=== PATIENT | female | born 1955 | race Caucasian/White ===

== ENCOUNTER 2016-06-28 16:31 | Emergency (ER) | payer MEDICAID ==
[~2016-06-28] VITALS: Ht 170.2 cm; Wt 99.8 kg
[~2016-06-28 16:31] MED LIST: ACET-929 PO; ANORO INHALER INH; ASPI81CH43 PO; CARV3.1240 PO; FURO20TA3 PO; GABA300C8 PO; LEV500T PO; LEVO150T10 PO; LISI10TA6 PO; METF-312 PO; SPIR25TA89 PO
[2016-06-28 17:13] LABS: Basophils # (auto) 0 uL; Basophils % (auto) 0.4 % (0.0-2.0); Eosinophils # (auto) 0.2 uL; Eosinophils % (auto) 2.5 % (0.0-7.0); Hematocrit 34.6 % (36.0-46.0); Hemoglobin 11.3 g/dL (12.2-16.2); Lymphocytes % (auto) 24.8 % (10.0-50.0); Mean Corpuscular Hgb Conc. 32.5 g/dL (32.0-36.0); Mean Corpuscular Volume 89.1 fL (80.0-100.0); Monocytes # (auto) 0.6 uL; Monocytes % (auto) 7.3 % (0.0-12.0); Neutrophils # (auto) 5.1 uL; Platelet Count (auto) 237 10^3/uL (140-450); Red Cell Distribution Width 17.8 % (11.6-16.0); White Blood Cell 7.9 10^3/uL (4.4-10.8)
[2016-06-28 17:40] LABS: Albumin 3.4 g/dL (3.4-5.0); BUN/Creatinine Ratio 19.8; Calcium 7.7 mg/dL (8.5-10.1); Potassium 4.6 mmol/L (3.5-5.1)
[2016-06-28 17:43] LABS: Bilirubin, Total 0.4 mg/dL (0.2-1.0); Total Protein 7.5 g/dL (6.4-8.2)
[2016-06-28] MEDS ORDERED: ALBUTEROL SULF 2.5 MG/0.5ML(0.5%) NEB SOLN NEB ONE (18:30)
[2016-06-28] MEDS ORDERED: IPRATROPIUM BROM 0.5 MG/2.5ML INH SOL NEB ONE (18:30)
[2016-06-28] MEDS ORDERED: methylPREDNISolone SOD SUCC 125 MG/2 ML VL IV ONE (18:30)
[2016-06-28 18:46] LABS: Magnesium 2.5 mg/dL (1.6-2.6)
[2016-06-28 19:39] LABS: B-Type Natriuretic Peptide 153.52 pg/mL (0-100)
[2016-06-28 19:40] LABS: Temperature: 23.1 C (20.0-25.0)
[2016-06-28] MEDS ORDERED: ENOXAPARIN SOD 100 MG/1 ML SYRINGE SC ONE (19:45)
[2016-06-28] MEDS ORDERED: IOHEXOL 350 MG/ML 100ML IJ ONE (20:35)
[2016-06-28 22:16] VITALS: BP 113/55
== END 2016-06-28 22:59 | disposition home or self-care (01) ==
LOC: ER 16:31 → EDBD 16:31 → ER 22:58
DX: J20.9 Acute bronchitis, unspecified (principal); I10 Essential (primary) hypertension; I13.0 Hypertensive heart and chronic kidney disease with heart failure and stage 1 through stage 4 chronic kidney disease, or unspecified chronic kidney disease; N18.9 Chronic kidney disease, unspecified; I50.40 Unspecified combined systolic (congestive) and diastolic (congestive) heart failure; J44.1 Chronic obstructive pulmonary disease with (acute) exacerbation; M19.90 Unspecified osteoarthritis, unspecified site; E11.9 Type 2 diabetes mellitus without complications; K21.9 Gastro-esophageal reflux disease without esophagitis; E78.5 Hyperlipidemia, unspecified; E07.89 Other specified disorders of thyroid; Z95.1 Presence of aortocoronary bypass graft; Z86.73 Personal history of transient ischemic attack (TIA), and cerebral infarction without residual deficits; Z90.49 Acquired absence of other specified parts of digestive tract; Z90.89 Acquired absence of other organs; Z98.51 Tubal ligation status; Z88.1 Allergy status to other antibiotic agents
CPT/HCPCS: 36415; 71010; 71275; 80053; 83735; 83880; 84484; 85025; 85379; 93005; 93970; 94640; 96372; 96374; 99285; J1650; J2930; Q9967

== ENCOUNTER 2016-09-13 20:27 | Emergency (ER) | payer MEDICAID ==
[~2016-09-13] VITALS: Ht 165.1 cm; Wt 104.3 kg
[2016-09-13 21:00] VITALS: BP 123/71
[2016-09-13 21:40] LABS: Basophils # (auto) 0 uL; Basophils % (auto) 0.4 % (0.0-2.0); Eosinophils # (auto) 0.2 uL; Hematocrit 41.3 % (36.0-46.0); Hemoglobin 13.8 g/dL (12.2-16.2); Lymphocytes # (auto) 1.9 uL; Lymphocytes % (auto) 18.5 % (10.0-50.0); Mean Corpuscular Hemoglobin 30.3 pg (28.0-32.0); Mean Corpuscular Hgb Conc. 33.4 g/dL (32.0-36.0); Mean Corpuscular Volume 90.8 fL (80.0-100.0); Mean Platelet Volume 7.6 fL (7.4-10.4); Monocytes # (auto) 0.6 uL; Monocytes % (auto) 6.1 % (0.0-12.0); Neutrophils # (auto) 7.6 uL; Platelet Count (auto) 326 10^3/uL (140-450); Red Cell Distribution Width 17.4 % (11.6-16.0); White Blood Cell 10.4 10^3/uL (4.4-10.8)
[2016-09-13 22:04] LABS: Urine Bilirubin Negative (Negative); Urine Blood Negative /uL (Negative); Urine Color Yellow (Yellow); Urine Glucose Normal (Normal); Urine Ketone Negative (Negative); Urine Mucus FEW (None Seen); Urine Nitrite Negative (Negative); Urine RBC 1 /hpf (0 - 4); Urine Squamous Epithelial Cell FEW /hpf (<5); Urine Urobilinogen Normal (Negative); Urine pH 5.5 (5.0-8.0)
[2016-09-13 22:08] LABS: Albumin 3.6 g/dL (3.4-5.0); Alkaline Phosphatase 109 U/L (45-117); Anion Gap 6 (5-15); Aspartate Aminotransferase 19 U/L (15-37); BUN/Creatinine Ratio 12.5; Bilirubin, Total 0.5 mg/dL (0.2-1.0); Blood Urea Nitrogen 13 mg/dL (7-18); Calcium 8.6 mg/dL (8.5-10.1); Carbon Dioxide 34 mmol/L (21-32); Chloride 96 mmol/L (98-107); GFR African American 69 mL/min; GFR Non-African American 57 mL/min; Glucose 108 mg/dL (74-106); Magnesium 2.1 mg/dL (1.6-2.6); Potassium 3.8 mmol/L (3.5-5.1); Sodium 136 mmol/L (136-145); Total Protein 8.6 g/dL (6.4-8.2)
== END 2016-09-14 05:10 | disposition left against medical advice (07) ==
LOC: ER 20:36
DX: R10.9 Unspecified abdominal pain (principal); R19.7 Diarrhea, unspecified; Z53.21 Procedure and treatment not carried out due to patient leaving prior to being seen by health care provider
CPT/HCPCS: 36415; 71020; 80053; 81001; 83690; 83735; 84484; 85025; 93005

== ENCOUNTER 2016-09-15 18:52 | Emergency (ER) | payer MEDICAID ==
[~2016-09-15] VITALS: Ht 170.2 cm; Wt 127.0 kg
[2016-09-15 21:06] LABS: Basophils # (auto) 0 uL; Basophils % (auto) 0.3 % (0.0-2.0); Eosinophils # (auto) 0.2 uL; Eosinophils % (auto) 2.3 % (0.0-7.0); Hematocrit 37.7 % (36.0-46.0); Hemoglobin 12.6 g/dL (12.2-16.2); Lymphocytes # (auto) 1.6 uL; Lymphocytes % (auto) 18.9 % (10.0-50.0); Mean Corpuscular Hemoglobin 29.9 pg (28.0-32.0); Mean Corpuscular Hgb Conc. 33.4 g/dL (32.0-36.0); Mean Corpuscular Volume 89.5 fL (80.0-100.0); Mean Platelet Volume 8.1 fL (7.4-10.4); Monocytes # (auto) 0.5 uL; Monocytes % (auto) 5.6 % (0.0-12.0); Neutrophils # (auto) 6.1 uL; Neutrophils % (auto) 72.9 % (37.0-80.0); Platelet Count (auto) 274 10^3/uL (140-450); Red Cell Distribution Width 17.5 % (11.6-16.0); White Blood Cell 8.3 10^3/uL (4.4-10.8)
[2016-09-15 21:19] LABS: BUN/Creatinine Ratio 14.9; Calcium 8.2 mg/dL (8.5-10.1); Potassium 3.9 mmol/L (3.5-5.1)
[2016-09-15] MEDS ORDERED: SODIUM CHLORIDE 0.9% 1,000 ML IV ONE (21:19)
[2016-09-15 21:22] LABS: Bilirubin, Total 0.3 mg/dL (0.2-1.0); Total Protein 7.7 g/dL (6.4-8.2)
[2016-09-15] MEDS ORDERED: NALBUPHINE HCL 10 MG/1ml INJECTION IV ONE (21:30)
[2016-09-15] MEDS ORDERED: ONDANSETRON HCL 4 MG/2 ML VIAL IV ONE (21:30)
[2016-09-16 03:18] VITALS: BP 103/55
== END 2016-09-16 03:30 | disposition short-term general hospital (02) ==
LOC: EDBD 18:52 → ER 18:55
DX: E66.01 Morbid (severe) obesity due to excess calories (principal); Z68.41 Body mass index [BMI] 40.0-44.9, adult; I11.0 Hypertensive heart disease with heart failure; I50.9 Heart failure, unspecified; E11.9 Type 2 diabetes mellitus without complications; K21.9 Gastro-esophageal reflux disease without esophagitis; E78.5 Hyperlipidemia, unspecified; M19.90 Unspecified osteoarthritis, unspecified site; I25.2 Old myocardial infarction; E07.9 Disorder of thyroid, unspecified; J44.9 Chronic obstructive pulmonary disease, unspecified; I25.810 Atherosclerosis of coronary artery bypass graft(s) without angina pectoris; Z87.442 Personal history of urinary calculi; Z90.49 Acquired absence of other specified parts of digestive tract; Z79.82 Long term (current) use of aspirin; Z88.1 Allergy status to other antibiotic agents
CPT/HCPCS: 36415; 74176; 80053; 82150; 83690; 85025; 96361; 96374; 96375; 99285; J2300; J2405; J7030

== ENCOUNTER 2017-05-06 14:12 | Inpatient (IN) | payer MEDICAID ==
[~2017-05-06] VITALS: Ht 165.1 cm; Wt 104.5 kg
[~2017-05-06 14:12] MED LIST changes: +GABA300C10 PO; -GABA300C8 PO; -METF-312 PO; +METF-370 PO
[2017-05-06] MEDS ORDERED: cefTRIAXone 1GM/10ml IVPUSH 10 ML IV ONE (15:15)
[2017-05-06 15:46] LABS: Basophils # (auto) 0 uL; Basophils % (auto) 0.3 % (0.0-2.0); Eosinophils # (auto) 0 uL; Eosinophils % (auto) 0.5 % (0.0-7.0); Hematocrit 32.8 % (36.0-46.0); Hemoglobin 11.1 g/dL (12.2-16.2); Lymphocytes # (auto) 0.9 uL; Lymphocytes % (auto) 17.4 % (10.0-50.0); Mean Corpuscular Hemoglobin 32.1 pg (28.0-32.0); Mean Corpuscular Hgb Conc. 33.9 g/dL (32.0-36.0); Mean Corpuscular Volume 94.6 fL (80.0-100.0); Monocytes # (auto) 0.4 uL; Monocytes % (auto) 7.3 % (0.0-12.0); Neutrophils % (auto) 74.5 % (37.0-80.0); Nucleated Red Blood Cells % 0.1 %; Platelet Count (auto) 184 10^3/uL (140-450); Red Blood Cells 3.46 10^6/uL (4.0-5.20); Red Cell Distribution Width 15.4 % (11.8-14.3); White Blood Cell 5.4 10^3/uL (4.4-10.8)
[2017-05-06 15:51] LABS: Magnesium 1.6 mg/dL (1.6-2.6)
[2017-05-06 15:52] LABS: Albumin 3.3 g/dL (3.4-5.0); BUN/Creatinine Ratio 28.7; Calcium 8.4 mg/dL (8.5-10.1); Potassium 4.5 mmol/L (3.5-5.1)
[2017-05-06 15:55] LABS: Bilirubin, Total 0.2 mg/dL (0.2-1.0)
[2017-05-06] MEDS ORDERED: ALBUTEROL SULF 2.5 MG/0.5ML(0.5%) NEB SOLN HHN ONE (17:00)
[2017-05-06] MEDS ORDERED: IPRATROPIUM BROM 0.5 MG/2.5ML INH SOL HHN ONE (17:00)
[2017-05-06] MEDS ORDERED: methylPREDNISolone SOD SUCC 125 MG/2 ML VL IV ONE (17:00)
[2017-05-06] MEDS ORDERED: ACETAMINOPHEN 500 MG TAB PO PRN (17:15)
[2017-05-06] MEDS ORDERED: NITROGLYCERIN 0.4 MG SL TAB SL PRN (17:15)
[2017-05-06] MEDS ORDERED: DEXTROSE (50%) 50ML SYRG IV PRN (17:15)
[2017-05-06] MEDS ORDERED: PROMETHAZINE HCL 25 MG/ML 1ML IV PRN (17:15)
[2017-05-06] MEDS ORDERED: TEMAZEPAM 15 MG CAP PO PRN (17:15)
[2017-05-06] MEDS ORDERED: OSELTAMIVIR 75 MG CAP PO ONE (17:15)
[2017-05-06] MEDS ORDERED: LORazepam 0.5 MG TAB PO PRN (17:15)
[2017-05-06] MEDS ORDERED: MORPHINE SULFATE 10 MG/ML INJ 1ML SDV IV PRN ×2 (17:15)
[2017-05-06] MEDS ORDERED: LACTULOSE 20Gm/30ML SOLN PO PRN (17:15)
[2017-05-06] MEDS ORDERED: ALBUTEROL SULF 2.5 MG/0.5ML(0.5%) NEB SOLN NEB PRN (17:15)
[2017-05-06 17:16] LABS: Urine Bacteria FEW /hpf (None Seen); Urine Blood Negative /uL (Negative); Urine Specific Gravity 1.026 (1.001-1.035); Urine WBC <1 /hpf (0 - 5)
[2017-05-06] MEDS: ALBUTEROL SULF 2.5 MG/0.5ML(0.5%) NEB SOLN NEB SCH (18:00)
[2017-05-06] MEDS ORDERED: methylPREDNISolone SOD SUCC 40 MG/ML VL IV SCH (18:00)
[2017-05-06] MEDS: IPRATROPIUM BROM 0.5 MG/2.5ML INH SOL NEB SCH (18:00)
[2017-05-06] MEDS: SPIRONOLACTONE 25 MG TAB PO SCH (18:18)
[2017-05-06 21:00] VITALS: BP 151/62
[2017-05-06 21:04] VITALS: BP 137/92
[2017-05-06] MEDS ORDERED: OSELTAMIVIR 75 MG CAP PO SCH (22:00)
[2017-05-06] MEDS: SODIUM CHLOR 0.9% PF (SALINE LOCK) 10ML VIAL IV SCH (22:40)
[2017-05-06] MEDS: methylPREDNISolone SOD SUCC 40 MG/ML VL IV SCH (22:40)
[2017-05-06] MEDS: GABAPENTIN 300 MG CAP PO SCH (22:41)
[2017-05-06] MEDS: CARVEDILOL 3.125 MG TAB PO SCH (22:41)
[2017-05-06] MEDS: ACCU-CHEK COMFORT CURVE STRIP VI SCH (22:42)
[2017-05-06] MEDS: InsuLIN REG 1unit/0.01ml Soln (100units/ml) SC SCH (22:42)
[2017-05-06 23:35] VITALS: BP 151/62
[2017-05-07] VITALS (7 sets, daily range): BP systolic 123–129; BP diastolic 50–70
[2017-05-07] MEDS: ALBUTEROL SULF 2.5 MG/0.5ML(0.5%) NEB SOLN NEB SCH ×4 (00:59→19:17)
[2017-05-07] MEDS: IPRATROPIUM BROM 0.5 MG/2.5ML INH SOL NEB SCH ×4 (00:59→19:17)
[2017-05-07] MEDS: SODIUM CHLOR 0.9% PF (SALINE LOCK) 10ML VIAL IV SCH ×3 (05:31→22:31)
[2017-05-07] MEDS: SPIRONOLACTONE 25 MG TAB PO SCH ×2 (05:32→17:38)
[2017-05-07 06:16] LABS: Basophils # (auto) 0 uL; Eosinophils # (auto) 0 uL; Hematocrit 34.9 % (36.0-46.0); Hemoglobin 11.6 g/dL (12.2-16.2); Lymphocytes # (auto) 0.4 uL; Lymphocytes % (auto) 9.8 % (10.0-50.0); Mean Corpuscular Hemoglobin 31.3 pg (28.0-32.0); Mean Corpuscular Hgb Conc. 33.3 g/dL (32.0-36.0); Monocytes # (auto) 0 uL; Monocytes % (auto) 1.1 % (0.0-12.0); Neutrophils # (auto) 3.7 uL; Neutrophils % (auto) 89.1 % (37.0-80.0); Nucleated Red Blood Cells % 0.1 %; Platelet Count (auto) 187 10^3/uL (140-450); Red Blood Cells 3.71 10^6/uL (4.0-5.20); Red Cell Distribution Width 15.3 % (11.8-14.3); White Blood Cell 4.1 10^3/uL (4.4-10.8)
[2017-05-07] MEDS: LEVOTHYROXINE SODIUM 50 MCG TAB PO SCH (06:19)
[2017-05-07] MEDS: ACCU-CHEK COMFORT CURVE STRIP VI SCH ×4 (06:20→22:37)
[2017-05-07] MEDS: InsuLIN REG 1unit/0.01ml Soln (100units/ml) SC SCH ×4 (06:20→22:40)
[2017-05-07 06:39] LABS: Cholesterol 141 mg/dL (< 200); HDL Cholesterol 48 mg/dL (40-59); LDL Cholesterol 84 mg/dL (< 100); Triglycerides 117 mg/dL (< 150)
[2017-05-07] MEDS: PANTOPRAZOLE 40 MG TAB PO SCH (09:27)
[2017-05-07] MEDS: GABAPENTIN 300 MG CAP PO SCH ×2 (09:27→22:31)
[2017-05-07] MEDS: LISINOPRIL 10 MG TAB PO SCH (09:28)
[2017-05-07] MEDS: FUROSEMIDE 20 MG TAB PO SCH (09:28)
[2017-05-07] MEDS: ASPirin 81 mg TAB PO SCH (09:28)
[2017-05-07] MEDS: methylPREDNISolone SOD SUCC 40 MG/ML VL IV SCH ×2 (09:29→22:31)
[2017-05-07] MEDS: LEVOFLOXACIN 500MG 100 ML IV SCH (09:29)
[2017-05-07] MEDS: CARVEDILOL 3.125 MG TAB PO SCH (10:00)
[2017-05-07] MEDS ORDERED: LEVOFLOXACIN 500 MG TAB PO SCH (10:00)
[2017-05-07] MEDS: HYDROcodone-ACET 5/325MG TAB PO PRN ×2 (17:38→23:36)
[2017-05-08] MEDS: ALBUTEROL SULF 2.5 MG/0.5ML(0.5%) NEB SOLN NEB SCH ×4 (00:08→19:27)
[2017-05-08] MEDS: IPRATROPIUM BROM 0.5 MG/2.5ML INH SOL NEB SCH ×4 (00:08→19:27)
[2017-05-08 05:44] VITALS: BP 104/39
[2017-05-08] MEDS: SODIUM CHLOR 0.9% PF (SALINE LOCK) 10ML VIAL IV SCH ×3 (06:06→21:14)
[2017-05-08] MEDS: SPIRONOLACTONE 25 MG TAB PO SCH ×2 (06:07→17:51)
[2017-05-08] MEDS: LEVOTHYROXINE SODIUM 50 MCG TAB PO SCH (06:07)
[2017-05-08] MEDS: InsuLIN REG 1unit/0.01ml Soln (100units/ml) SC SCH ×4 (06:07→22:00)
[2017-05-08] MEDS: ACCU-CHEK COMFORT CURVE STRIP VI SCH ×4 (06:07→21:14)
[2017-05-08 08:00] VITALS: BP 111/55
[2017-05-08 08:51] VITALS: BP 111/55
[2017-05-08] MEDS: LEVOFLOXACIN 500MG 100 ML IV SCH (11:12)
[2017-05-08] MEDS: methylPREDNISolone SOD SUCC 40 MG/ML VL IV SCH (11:13)
[2017-05-08] MEDS: ASPirin 81 mg TAB PO SCH (11:13)
[2017-05-08] MEDS: FUROSEMIDE 20 MG TAB PO SCH (11:15)
[2017-05-08] MEDS: GABAPENTIN 300 MG CAP PO SCH ×2 (11:16→21:14)
[2017-05-08] MEDS: PANTOPRAZOLE 40 MG TAB PO SCH (11:16)
[2017-05-08] MEDS: LISINOPRIL 10 MG TAB PO SCH (11:17)
[2017-05-08] MEDS: HYDROcodone-ACET 5/325MG TAB PO PRN (11:33)
[2017-05-08 13:13] VITALS: BP 132/66
[2017-05-08] MEDS: predniSONE 20 MG TAB PO SCH (14:08)
[2017-05-08 17:19] VITALS: BP 118/61
[2017-05-09] MEDS: ALBUTEROL SULF 2.5 MG/0.5ML(0.5%) NEB SOLN NEB SCH ×3 (00:39→11:36)
[2017-05-09] MEDS: IPRATROPIUM BROM 0.5 MG/2.5ML INH SOL NEB SCH ×3 (00:39→11:36)
[2017-05-09 04:59] VITALS: BP 127/74
[2017-05-09] MEDS: SODIUM CHLOR 0.9% PF (SALINE LOCK) 10ML VIAL IV SCH (06:23)
[2017-05-09] MEDS: LEVOTHYROXINE SODIUM 50 MCG TAB PO SCH (06:24)
[2017-05-09] MEDS: SPIRONOLACTONE 25 MG TAB PO SCH (06:24)
[2017-05-09] MEDS: InsuLIN REG 1unit/0.01ml Soln (100units/ml) SC SCH ×2 (06:24→11:08)
[2017-05-09] MEDS: ACCU-CHEK COMFORT CURVE STRIP VI SCH ×2 (06:24→11:08)
[2017-05-09 08:14] VITALS: BP 115/56
[2017-05-09] MEDS: FUROSEMIDE 20 MG TAB PO SCH (09:02)
[2017-05-09] MEDS: predniSONE 20 MG TAB PO SCH (09:02)
[2017-05-09] MEDS: PANTOPRAZOLE 40 MG TAB PO SCH (09:02)
[2017-05-09] MEDS: ASPirin 81 mg TAB PO SCH (09:03)
[2017-05-09] MEDS: LEVOFLOXACIN 500MG 100 ML IV SCH (09:03)
[2017-05-09] MEDS: HYDROcodone-ACET 5/325MG TAB PO PRN (09:03)
[2017-05-09] MEDS: GABAPENTIN 300 MG CAP PO SCH (09:03)
[2017-05-09] MEDS: LISINOPRIL 10 MG TAB PO SCH (09:03)
[2017-05-09 10:21] VITALS: BP 115/56
[2017-05-09] MEDS ORDERED: MUPI2OIN10 EACHNOSTRI (11:33)
[2017-05-09] MEDS ORDERED: GUAI600T23 PO (11:33)
[2017-05-09] MEDS ORDERED: LEVO500T21 PO (11:33)
[2017-05-09 12:51] VITALS: BP 111/53
== END 2017-05-09 13:29 | disposition home or self-care (01) | DRG 139 ==
LOC: EDBD 14:12 → ER 14:12 → TELE 14:13 → TELE-CENTR 20:35
PROVIDERS: ADMIT Internal Medicine; ATTEND Internal Medicine
DX: J18.9 Pneumonia, unspecified organism (principal); I50.41 Acute combined systolic (congestive) and diastolic (congestive) heart failure; J96.11 Chronic respiratory failure with hypoxia; E11.21 Type 2 diabetes mellitus with diabetic nephropathy; I13.0 Hypertensive heart and chronic kidney disease with heart failure and stage 1 through stage 4 chronic kidney disease, or unspecified chronic kidney disease; Z99.81 Dependence on supplemental oxygen; E11.22 Type 2 diabetes mellitus with diabetic chronic kidney disease; J44.1 Chronic obstructive pulmonary disease with (acute) exacerbation; J44.0 Chronic obstructive pulmonary disease with (acute) lower respiratory infection; F41.9 Anxiety disorder, unspecified; I25.10 Atherosclerotic heart disease of native coronary artery without angina pectoris; N18.2 Chronic kidney disease, stage 2 (mild); E03.9 Hypothyroidism, unspecified; E66.9 Obesity, unspecified; I45.10 Unspecified right bundle-branch block; J20.9 Acute bronchitis, unspecified; K21.9 Gastro-esophageal reflux disease without esophagitis; E78.5 Hyperlipidemia, unspecified; I25.2 Old myocardial infarction; Z95.1 Presence of aortocoronary bypass graft; Z90.49 Acquired absence of other specified parts of digestive tract; Z98.51 Tubal ligation status; Z82.49 Family history of ischemic heart disease and other diseases of the circulatory system; Z68.38 Body mass index [BMI] 38.0-38.9, adult; Z88.1 Allergy status to other antibiotic agents; Z22.322 Carrier or suspected carrier of Methicillin resistant Staphylococcus aureus
CPT/HCPCS: 36415; 71045; 71046; 80053; 80061; 81001; 82962; 83036; 83605; 83735; 83880; 84484; 85025; 87040; 87081; 87400; 93005; 94640; 94761; 96374; J1815; J1956

== ENCOUNTER 2017-05-12 19:44 | Inpatient (IN) | payer MEDICAID ==
[~2017-05-12] VITALS: Ht 170.2 cm; Wt 101.6 kg
[~2017-05-12 19:44] MED LIST changes: +GUAI600T23 PO; +LEVO500T21 PO; +MUPI2OIN10 EACHNOSTRI
[2017-05-12] MEDS ORDERED: ASPirin 81 mg TAB PO ONE (20:15)
[2017-05-12] MEDS ORDERED: ONDANSETRON HCL 4 MG/2 ML VIAL IV ONE (20:30)
[2017-05-12] MEDS ORDERED: MORPHINE SULFATE 10 MG/ML INJ 1ML SDV IV ONE (20:30)
[2017-05-12] MEDS ORDERED: FUROSEMIDE 20 MG/2 ML VIAL IV ONE (20:30)
[2017-05-12 20:37] LABS: Basophils # (auto) 0 uL; Basophils % (auto) 0.1 % (0.0-2.0); Eosinophils # (auto) 0 uL; Eosinophils % (auto) 0.1 % (0.0-7.0); Hemoglobin 13.3 g/dL (12.2-16.2); Lymphocytes # (auto) 0.7 uL; Lymphocytes % (auto) 7.2 % (10.0-50.0); Mean Corpuscular Hemoglobin 31.6 pg (28.0-32.0); Mean Corpuscular Hgb Conc. 34.1 g/dL (32.0-36.0); Mean Corpuscular Volume 92.5 fL (80.0-100.0); Monocytes # (auto) 0.1 uL; Neutrophils # (auto) 9.2 uL; Neutrophils % (auto) 91.6 % (37.0-80.0); Platelet Count (auto) 238 10^3/uL (140-450); Red Blood Cells 4.22 10^6/uL (4.0-5.20); Red Cell Distribution Width 15.2 % (11.8-14.3)
[2017-05-12 20:50] LABS: Alanine Aminotransferase 31 U/L (13-56); Albumin 3.6 g/dL (3.4-5.0); Alkaline Phosphatase 105 U/L (45-117); Anion Gap 9 (5-15); Aspartate Aminotransferase 13 U/L (15-37); BUN/Creatinine Ratio 15.5; Bilirubin, Total 0.5 mg/dL (0.2-1.0); Blood Urea Nitrogen 20 mg/dL (7-18); Calcium 8.8 mg/dL (8.5-10.1); Carbon Dioxide 28 mmol/L (21-32); Chloride 99 mmol/L (98-107); GFR African American 54 mL/min; GFR Non-African American 45 mL/min; Glucose 203 mg/dL (74-106); Potassium 4.1 mmol/L (3.5-5.1); Sodium 136 mmol/L (136-145); Total Protein 8.1 g/dL (6.4-8.2)
[2017-05-12 21:40] LABS: Urine Bacteria NONE SEEN /hpf (None Seen); Urine Blood Negative /uL (Negative); Urine WBC <1 /hpf (0 - 5)
[2017-05-13] VITALS (7 sets, daily range): BP systolic 100–124; BP diastolic 62–73
[2017-05-13] MEDS ORDERED: ONDANSETRON HCL 4 MG/2 ML VIAL IV PRN (02:30)
[2017-05-13] MEDS ORDERED: DEXTROSE (50%) 50ML SYRG IV PRN (02:45)
[2017-05-13] MEDS: ACCU-CHEK COMFORT CURVE STRIP VI SCH ×4 (05:59→22:18)
[2017-05-13] MEDS: InsuLIN REG 1unit/0.01ml Soln (100units/ml) SC SCH ×4 (05:59→22:19)
[2017-05-13] MEDS: LEVOTHYROXINE SODIUM 50 MCG TAB PO SCH (06:21)
[2017-05-13] MEDS: IPRATROPIUM BROM 0.5 MG/2.5ML INH SOL NEB SCH ×3 (06:33→18:48)
[2017-05-13] MEDS: ALBUTEROL SULF 2.5 MG/0.5ML(0.5%) NEB SOLN NEB SCH ×3 (06:33→18:49)
[2017-05-13 09:30] LABS: Basophils # (auto) 0 uL; Basophils % (auto) 0.3 % (0.0-2.0); Eosinophils # (auto) 0 uL; Eosinophils % (auto) 0.3 % (0.0-7.0); Hemoglobin 12.6 g/dL (12.2-16.2); Lymphocytes # (auto) 1.4 uL; Lymphocytes % (auto) 19.6 % (10.0-50.0); Mean Corpuscular Hemoglobin 31.1 pg (28.0-32.0); Mean Corpuscular Volume 91.5 fL (80.0-100.0); Monocytes # (auto) 0.6 uL; Monocytes % (auto) 7.9 % (0.0-12.0); Neutrophils # (auto) 5.3 uL; Neutrophils % (auto) 71.9 % (37.0-80.0); Platelet Count (auto) 247 10^3/uL (140-450); Red Blood Cells 4.04 10^6/uL (4.0-5.20); White Blood Cell 7.4 10^3/uL (4.4-10.8)
[2017-05-13 09:51] LABS: BUN/Creatinine Ratio 22.4; Calcium 8.7 mg/dL (8.5-10.1); Potassium 3.8 mmol/L (3.5-5.1)
[2017-05-13] MEDS ORDERED: CARVEDILOL 3.125 MG TAB PO SCH (10:00)
[2017-05-13] MEDS: GABAPENTIN 300 MG CAP PO SCH ×2 (10:17→22:09)
[2017-05-13] MEDS: ASPirin-EC 81 mg tab PO SCH (10:18)
[2017-05-13] MEDS: FUROSEMIDE 20 MG TAB PO SCH (10:19)
[2017-05-13] MEDS ORDERED: DOXYCYCLINE HYC 100MG/250ML 250 ML IV ONE (12:45)
[2017-05-13] MEDS: ACETAMINOPHEN 500 MG TAB PO PRN ×2 (13:10→20:16)
[2017-05-13] MEDS: DOXYCYCLINE HYC 100MG/250ML 250 ML IV SCH (13:10)
[2017-05-13] MEDS: methylPREDNISolone SOD SUCC 40 MG/ML VL IV SCH ×2 (13:42→22:08)
[2017-05-14] MEDS: ALBUTEROL SULF 2.5 MG/0.5ML(0.5%) NEB SOLN NEB SCH ×4 (00:21→18:00)
[2017-05-14] MEDS: IPRATROPIUM BROM 0.5 MG/2.5ML INH SOL NEB SCH ×4 (00:21→18:00)
[2017-05-14] MEDS: DOXYCYCLINE HYC 100MG/250ML 250 ML IV SCH ×2 (00:40→12:37)
[2017-05-14 05:00] VITALS: BP 128/64
[2017-05-14] MEDS: methylPREDNISolone SOD SUCC 40 MG/ML VL IV SCH ×3 (05:55→21:53)
[2017-05-14] MEDS: LEVOTHYROXINE SODIUM 50 MCG TAB PO SCH (06:21)
[2017-05-14] MEDS: ACCU-CHEK COMFORT CURVE STRIP VI SCH ×4 (06:22→21:53)
[2017-05-14] MEDS: InsuLIN REG 1unit/0.01ml Soln (100units/ml) SC SCH ×4 (06:22→21:52)
[2017-05-14 07:09] LABS: BUN/Creatinine Ratio 28.3; Calcium 9.3 mg/dL (8.5-10.1); Potassium 4.5 mmol/L (3.5-5.1)
[2017-05-14 09:00] VITALS: BP 128/33
[2017-05-14] MEDS ORDERED: methylPREDNISolone SOD SUCC 40 MG/ML VL IV SCH (10:00)
[2017-05-14] MEDS: FUROSEMIDE 20 MG TAB PO SCH (10:54)
[2017-05-14] MEDS: GABAPENTIN 300 MG CAP PO SCH ×2 (10:54→21:53)
[2017-05-14] MEDS: ASPirin-EC 81 mg tab PO SCH (10:55)
[2017-05-14] MEDS ORDERED: FUROSEMIDE 20 MG/2 ML VIAL IV ONE (11:45)
[2017-05-14] MEDS ORDERED: POTASSIUM CHL 20 Meq TABLET PO ONE (11:45)
[2017-05-14 13:00] VITALS: BP 132/67
[2017-05-14 16:56] VITALS: BP 141/73
[2017-05-14] MEDS: BUDESONIDE (INHALATION) 0.5 MG/2 ML NEB NEB SCH (22:27)
[2017-05-14 22:47] VITALS: BP 133/62
[2017-05-15] MEDS: IPRATROPIUM BROM 0.5 MG/2.5ML INH SOL NEB SCH ×3 (00:20→11:46)
[2017-05-15] MEDS: ALBUTEROL SULF 2.5 MG/0.5ML(0.5%) NEB SOLN NEB SCH ×3 (00:20→11:46)
[2017-05-15] MEDS: DOXYCYCLINE HYC 100MG/250ML 250 ML IV SCH ×2 (01:41→11:57)
[2017-05-15 05:41] VITALS: BP 144/74
[2017-05-15] MEDS: methylPREDNISolone SOD SUCC 40 MG/ML VL IV SCH ×2 (06:12→13:33)
[2017-05-15] MEDS: LEVOTHYROXINE SODIUM 50 MCG TAB PO SCH (06:32)
[2017-05-15] MEDS: InsuLIN REG 1unit/0.01ml Soln (100units/ml) SC SCH ×2 (06:33→11:45)
[2017-05-15] MEDS: ACCU-CHEK COMFORT CURVE STRIP VI SCH ×2 (06:33→11:00)
[2017-05-15] MEDS: BUDESONIDE (INHALATION) 0.5 MG/2 ML NEB NEB SCH (06:45)
[2017-05-15 09:00] VITALS: BP 127/74
[2017-05-15] MEDS: GABAPENTIN 300 MG CAP PO SCH (10:59)
[2017-05-15] MEDS: FUROSEMIDE 20 MG TAB PO SCH (10:59)
[2017-05-15] MEDS: ASPirin-EC 81 mg tab PO SCH (10:59)
[2017-05-15 12:26] VITALS: BP 127/74
[2017-05-15 13:00] VITALS: BP 138/77
== END 2017-05-15 16:00 | disposition home or self-care (01) | DRG 191 ==
LOC: EDBD 19:44 → ER 19:44 → OVERFLOW 19:45 → WEST WING 05-13 04:55
PROVIDERS: ADMIT Nurse Practitioner Family; ATTEND Internal Medicine
DX: J44.1 Chronic obstructive pulmonary disease with (acute) exacerbation (principal); I13.0 Hypertensive heart and chronic kidney disease with heart failure and stage 1 through stage 4 chronic kidney disease, or unspecified chronic kidney disease; J96.10 Chronic respiratory failure, unspecified whether with hypoxia or hypercapnia; E11.22 Type 2 diabetes mellitus with diabetic chronic kidney disease; E11.65 Type 2 diabetes mellitus with hyperglycemia; I50.32 Chronic diastolic (congestive) heart failure; D64.9 Anemia, unspecified; E03.9 Hypothyroidism, unspecified; E78.5 Hyperlipidemia, unspecified; E86.0 Dehydration; I25.10 Atherosclerotic heart disease of native coronary artery without angina pectoris; K21.9 Gastro-esophageal reflux disease without esophagitis; N18.9 Chronic kidney disease, unspecified; R79.1 Abnormal coagulation profile; E78.00 Pure hypercholesterolemia, unspecified; Z79.899 Other long term (current) drug therapy; Z82.49 Family history of ischemic heart disease and other diseases of the circulatory system; Z86.73 Personal history of transient ischemic attack (TIA), and cerebral infarction without residual deficits; Z86.74 Personal history of sudden cardiac arrest; Z95.1 Presence of aortocoronary bypass graft; Z99.81 Dependence on supplemental oxygen; Z79.84 Long term (current) use of oral hypoglycemic drugs; Z90.49 Acquired absence of other specified parts of digestive tract; I25.2 Old myocardial infarction; Z87.891 Personal history of nicotine dependence; Z88.1 Allergy status to other antibiotic agents
CPT/HCPCS: 36415; 71046; 80048; 80053; 81001; 82962; 83735; 83880; 84484; 85025; 85379; 87081; 93005; 94640; 94761; 96374; 96375; J1815; J2405; J3490

== ENCOUNTER 2019-03-11 15:39 | Emergency (ER) | payer MEDICAID ==
[~2019-03-11] VITALS: Ht 165.1 cm; Wt 88.5 kg
[~2019-03-11 15:39] MED LIST changes: -LEV500T PO; -LEVO500T21 PO; +SPIR25TA8 PO; -SPIR25TA89 PO
[2019-03-11 16:40] LABS: Basophils # (auto) 0.1 uL; Eosinophils # (auto) 0.3 uL; Eosinophils % (auto) 6.3 % (0.0-7.0); Hematocrit 32.2 % (36.0-46.0); Lymphocytes # (auto) 1.2 uL; Lymphocytes % (auto) 23.4 % (10.0-50.0); Mean Corpuscular Hemoglobin 33.5 pg (28.0-32.0); Mean Corpuscular Hgb Conc. 34.1 g/dL (32.0-36.0); Mean Corpuscular Volume 98.1 fL (80.0-100.0); Monocytes # (auto) 0.4 uL; Monocytes % (auto) 7.7 % (0.0-12.0); Neutrophils # (auto) 3.3 uL; Neutrophils % (auto) 61.6 % (37.0-80.0); Nucleated Red Blood Cells % 0.1 %; Platelet Count (auto) 186 10^3/uL (140-450); Red Blood Cells 3.28 10^6/uL (4.0-5.20); Red Cell Distribution Width 13.3 % (11.8-14.3); White Blood Cell 5.3 10^3/uL (4.4-10.8)
[2019-03-11 16:48] LABS: Albumin 3.5 g/dL (3.4-5.0); Calcium 8.6 mg/dL (8.5-10.1); Potassium 5.5 mmol/L (3.5-5.1)
[2019-03-11 16:51] LABS: BUN/Creatinine Ratio 17.1; Bilirubin, Total 0.2 mg/dL (0.2-1.0); Total Protein 6.9 g/dL (6.4-8.2)
[2019-03-11] MEDS ORDERED: SODIUM ZIRCONIUM CYCL 10 GM PAK PO ONE (17:15)
[2019-03-11] MEDS ORDERED: FUROSEMIDE 40 MG/4 ML VIAL IV ONE (17:30)
[2019-03-11] MEDS ORDERED: DEXTROSE (50%) 50ML SYRG IV ONE (17:30)
[2019-03-11] MEDS ORDERED: SODIUM BICARBONATE 8.4 % INJ 50ML VIAL IV ONE (17:30)
[2019-03-11] MEDS ORDERED: InsuLIN REG 1unit/0.01ml Soln (100units/ml) IV ONE (17:30)
[2019-03-11] MEDS ORDERED: SODIUM CHLORIDE 0.9% 500 ML IV ONE (17:30)
[2019-03-12] MEDS ORDERED: ACETAMINOPHEN 325 MG TAB PO ONE (00:15)
[2019-03-12 01:00] VITALS: BP 118/59
== END 2019-03-12 01:57 | disposition home or self-care (01) ==
LOC: ER 15:47
DX: E87.5 Hyperkalemia (principal); N28.9 Disorder of kidney and ureter, unspecified; E66.01 Morbid (severe) obesity due to excess calories; E11.22 Type 2 diabetes mellitus with diabetic chronic kidney disease; I13.0 Hypertensive heart and chronic kidney disease with heart failure and stage 1 through stage 4 chronic kidney disease, or unspecified chronic kidney disease; I50.89 Other heart failure; J44.9 Chronic obstructive pulmonary disease, unspecified; E78.5 Hyperlipidemia, unspecified; I25.2 Old myocardial infarction; Z90.49 Acquired absence of other specified parts of digestive tract; Z98.51 Tubal ligation status; Z95.1 Presence of aortocoronary bypass graft; Z87.891 Personal history of nicotine dependence; Z68.32 Body mass index [BMI] 32.0-32.9, adult; Z88.1 Allergy status to other antibiotic agents; Z79.82 Long term (current) use of aspirin; Z79.899 Other long term (current) drug therapy
CPT/HCPCS: 36415; 80053; 82962; 84132; 85025; 93005; 96374; 96375; 99284; J1815; J1940; J7040; J7042

== ENCOUNTER 2019-10-16 12:03 | Inpatient (IN) | payer MEDICAID ==
[~2019-10-16] VITALS: Ht 165.1 cm; Wt 105.4 kg
[~2019-10-16 12:03] MED LIST changes: +LISI-648 PO; -LISI10TA6 PO
[2019-10-16] MEDS ORDERED: SODIUM CHLORIDE 0.9% 1,000 ML IVB ONE (12:44)
[2019-10-16 13:50] LABS: Basophils # (auto) 0 10 ^3/uL (0-0.2); Basophils % (auto) 0.5 % (0.0-2.0); Eosinophils # (auto) 0.2 10 ^3/uL (0-0.8); Eosinophils % (auto) 3.4 % (0.0-7.0); Hematocrit 29.5 % (36.0-46.0); Hemoglobin 9.8 g/dL (12.2-16.2); Lymphocytes # (auto) 0.9 10 ^3/uL (0.4-5.4); Lymphocytes % (auto) 12.4 % (10.0-50.0); Mean Corpuscular Hemoglobin 32.8 pg (28.0-32.0); Mean Corpuscular Hgb Conc. 33.3 g/dL (32.0-36.0); Mean Corpuscular Volume 98.5 fL (80.0-100.0); Monocytes # (auto) 0.6 10 ^3/uL (0-1.3); Monocytes % (auto) 7.8 % (0.0-12.0); Neutrophils # (auto) 5.5 10 ^3/uL (1.6-8.6); Neutrophils % (auto) 75.9 % (37.0-80.0); Platelet Count (auto) 187 10^3/uL (140-450); Red Blood Cells 2.99 10^6/uL (4.0-5.20); Red Cell Distribution Width 14.2 % (11.8-14.3); White Blood Cell 7.3 10^3/uL (4.4-10.8)
[2019-10-16 14:05] LABS: Albumin 2.7 g/dL (3.4-5.0); Anion Gap 7 (5-15); Blood Urea Nitrogen 39 mg/dL (7-18); Calcium 7.9 mg/dL (8.5-10.1); Carbon Dioxide 24 mmol/L (21-32); Chloride 107 mmol/L (98-107); Glucose 96 mg/dL (74-106); INR 1.06 (0.9-1.15); Partial Thromboplastin Time 31.4 sec (23.64-32.05); Potassium 5.2 mmol/L (3.5-5.1); Sodium 138 mmol/L (136-145)
[2019-10-16 14:09] LABS: Alanine Aminotransferase 7 U/L (13-56); Aspartate Aminotransferase 11 U/L (15-37); BUN/Creatinine Ratio 15.7; GFR African American 25 mL/min; GFR Non-African American 21 mL/min
[2019-10-16 14:12] LABS: Alkaline Phosphatase 75 U/L (45-117); Bilirubin, Total 0.3 mg/dL (0.2-1.0); Total Protein 6.5 g/dL (6.4-8.2)
[2019-10-16 17:36] LABS: Urine Bacteria FEW /hpf (None Seen); Urine Blood Negative /uL (Negative); Urine Mucus FEW (None Seen); Urine WBC 9 /hpf (0 - 5)
[2019-10-16] MEDS ORDERED: MORPHINE SULF INJ 2 MG/ML SYRINGE 1ML IV PRN ×2 (18:00)
[2019-10-16] MEDS ORDERED: NITROGLYCERIN 0.4 MG SL TAB SL PRN (18:00)
[2019-10-16] MEDS ORDERED: PROMETHAZINE HCL 25 MG/ML 1ML IV PRN (18:00)
[2019-10-16] MEDS ORDERED: ACETAMINOPHEN 500 MG TAB PO PRN (18:00)
[2019-10-16] MEDS ORDERED: DEXTROSE (50%) 50ML SYRG IV PRN (18:00)
[2019-10-16] MEDS ORDERED: cefTRIAXone 1GM/50ML D5W 50 ML IV ONE (18:00)
[2019-10-16] MEDS: SODIUM CHLORIDE 0.9% 1,000 ML IV SCH (18:17)
[2019-10-16] MEDS: InsuLIN REG 1unit/0.01ml Soln (100units/ml) SC SCH (21:26)
[2019-10-16] MEDS: ACCU-CHEK COMFORT CURVE STRIP VI SCH (21:27)
[2019-10-16] MEDS: GABAPENTIN 300 MG CAP PO SCH (21:42)
[2019-10-16] MEDS: FAMOTIDINE 20 MG TAB PO SCH (21:43)
[2019-10-16 23:34] VITALS: BP 120/68
--- NOTE | 2019-10-16 23:34 | NUR ---
Telemetry admit from ER CLAY MORRIS admitted to Telemetry unit after SBAR received. Patient oriented to SKYE CONTE, primary RN, unit, room, bed, and unit policies regarding patient care and visiting hours. Patient now on continuous telemetry monitoring, tele box # and telemetry reading on arrival to unit is sr 75. Patient placed on bedside oxygen, weighed by bedscale and encouraged to call if they need something. All questions and concerns addressed, patient verbalized understanding. BED IN LOW POSITION AND CALL LIGHT WITHIN REACH
--- NOTE | 2019-10-17 02:47 | NUR ---
PATIENT REPORTED SHE WILL PROVIDE HOME MEDICATION IN AM
--- NOTE | 2019-10-17 03:37 | NUR ---
IV insertion IV access obtained, via clean sterile technique by inserting 22 gauge catheter at right forearm after 1 attempt. IV secured properly. No trauma to site. Patient tolerated well.
--- NOTE | 2019-10-17 03:40 | NUR ---
sent urine bacterial culture
[2019-10-17] MEDS: SODIUM CHLORIDE 0.9% 1,000 ML IV SCH ×3 (04:12→23:37)
--- NOTE | 2019-10-17 04:49 | NUR ---
mrsa swab sent
[2019-10-17 05:30] VITALS: BP 102/56
[2019-10-17] MEDS: ACCU-CHEK COMFORT CURVE STRIP VI SCH ×2 (06:37→11:42)
[2019-10-17] MEDS: LEVOTHYROXINE SODIUM 50 MCG TAB PO SCH (06:37)
[2019-10-17] MEDS: InsuLIN REG 1unit/0.01ml Soln (100units/ml) SC SCH ×2 (06:37→11:30)
--- NOTE | 2019-10-17 06:39 | NUR ---
Synthroid held per pharmacy .unknown pt medication dosage. per pt she will provided list of home medication in the am will endorse care to day shift rn
[2019-10-17 07:09] LABS: Basophils # (auto) 0 10 ^3/uL (0-0.2); Basophils % (auto) 0.7 % (0.0-2.0); Eosinophils # (auto) 0.3 10 ^3/uL (0-0.8); Eosinophils % (auto) 5.6 % (0.0-7.0); Hematocrit 28.5 % (36.0-46.0); Hemoglobin 9.5 g/dL (12.2-16.2); Lymphocytes # (auto) 0.9 10 ^3/uL (0.4-5.4); Lymphocytes % (auto) 17.6 % (10.0-50.0); Mean Corpuscular Hgb Conc. 33.4 g/dL (32.0-36.0); Mean Corpuscular Volume 98.8 fL (80.0-100.0); Monocytes # (auto) 0.4 10 ^3/uL (0-1.3); Monocytes % (auto) 8.9 % (0.0-12.0); Neutrophils # (auto) 3.4 10 ^3/uL (1.6-8.6); Neutrophils % (auto) 67.2 % (37.0-80.0); Nucleated Red Blood Cells % 0.1 %; Platelet Count (auto) 167 10^3/uL (140-450); Red Blood Cells 2.89 10^6/uL (4.0-5.20); White Blood Cell 5.1 10^3/uL (4.4-10.8)
--- NOTE | 2019-10-17 07:17 | NUR ---
end of shift notes endorse pt care to day shift rn . pt a0x4, no s/s of distress or sob and no pain . fall precaution in place
[2019-10-17 07:27] LABS: Albumin 2.5 g/dL (3.4-5.0); Calcium 8.5 mg/dL (8.5-10.1); Potassium 5.2 mmol/L (3.5-5.1)
[2019-10-17 07:34] LABS: BUN/Creatinine Ratio 22.1; Bilirubin, Total 0.2 mg/dL (0.2-1.0); Total Protein 6.1 g/dL (6.4-8.2)
[2019-10-17 08:57] VITALS: BP 95/46
[2019-10-17] MEDS: ANORO IN SCH (09:31)
[2019-10-17] MEDS: cefTRIAXone 1GM/50ML D5W 50 ML IV SCH (09:31)
[2019-10-17] MEDS: ASPirin 81 mg TAB PO SCH (09:31)
[2019-10-17] MEDS: GABAPENTIN 300 MG CAP PO SCH (09:32)
[2019-10-17] MEDS: ENOXAPARIN SOD 30 MG/0.3 ML SYRINGE SC SCH (09:32)
--- NOTE | 2019-10-17 09:33 | NUR ---
requested patient to have family bring in home medication inhaler, she verbalized instruction.
--- NOTE | 2019-10-17 10:40 | NUR ---
ss consult Per consult advanced directive. Patient has been provided with advanced directive. All questions answered. Addendum: 10/17/19 at 1041 by Karma SALGADO Amended: Links added.
[2019-10-17 13:08] VITALS: BP 100/46
[2019-10-17] MEDS ORDERED: SODIUM ZIRCONIUM CYCL 10 GM PAK PO ONE (13:15)
[2019-10-17] MEDS ORDERED: MORPHINE SULF INJ 2 MG/ML SYRINGE 1ML IV PRN (13:15)
[2019-10-17 13:29] LABS: % Iron Saturation 18.4 % (15-50)
--- NOTE | 2019-10-17 13:56 | NUR ---
Orthostatic VS Laying- 118/64- HR 67 Sitting- 118/60- HR 66 Standing- 110/66-HR 72
--- NOTE | 2019-10-17 14:06 | NUR ---
Stool specimen - Informed patient that we need stool sample, she verbalized understanding, sterile cup placed at patients bedside.
[2019-10-17] MEDS ORDERED: LEVO137T3 PO (15:24)
--- NOTE | 2019-10-17 15:38 | NUR ---
PT at bedside.
[2019-10-17 16:45] VITALS: BP 109/59
[2019-10-17] MEDS ORDERED: LISI-275 PO (18:30)
--- NOTE | 2019-10-17 18:31 | NUR ---
UPDATED PATIENTS HOME MEDICATIONS.
--- NOTE | 2019-10-17 19:10 | NUR ---
Opening Shift Note Assumed care of patient, awake, alert and oriented x4, on 2L of oxygen via NC with even and unlabored respirations, no S/S of distress/SOB or pain. Patient able to ambulate independently, bed in lowest locked position, side rails up x2, and call light within reach. Instructed on POC and to call for assist PRN, will continue to monitor for changes Q1hr and PRN.
[2019-10-17] MEDS: HYDROcodone-ACET 5/325MG TAB PO PRN (20:12)
[2019-10-17] MEDS: FAMOTIDINE 20 MG TAB PO SCH (21:46)
[2019-10-17 23:13] VITALS: BP 113/63
[2019-10-18 05:20] VITALS: BP 128/74
[2019-10-18 06:13] LABS: Hematocrit 27.7 % (36.0-46.0); Hemoglobin 9.7 g/dL (12.2-16.2)
[2019-10-18 06:29] LABS: Potassium 4.9 mmol/L (3.5-5.1)
[2019-10-18 06:42] LABS: BUN/Creatinine Ratio 15.9; Calcium 8.8 mg/dL (8.5-10.1); Magnesium 1.8 mg/dL (1.6-2.6)
[2019-10-18] MEDS: LEVOTHYROXINE SODIUM 50 MCG TAB PO SCH (07:02)
[2019-10-18] MEDS: cefTRIAXone 1GM/50ML D5W 50 ML IV SCH (08:26)
[2019-10-18 08:57] VITALS: BP 131/71
[2019-10-18] MEDS: SODIUM CHLORIDE 0.9% 1,000 ML IV SCH ×2 (09:29→15:04)
[2019-10-18] MEDS: ENOXAPARIN SOD 30 MG/0.3 ML SYRINGE SC SCH (09:29)
[2019-10-18] MEDS: ASPirin 81 mg TAB PO SCH (09:29)
[2019-10-18] MEDS: ANORO IN SCH (09:30)
--- NOTE | 2019-10-18 10:12 | NUR ---
Home Meds- Patient is a poor historian stated she wasn't taking aldactone at home.
[2019-10-18] MEDS: HYDROcodone-ACET 5/325MG TAB PO PRN ×2 (11:32→19:44)
--- NOTE | 2019-10-18 12:08 | NUR ---
MD aware that patient had been sinus garry 50-57 during sleeping. If HR drops to 30-40 then consult cardiology, page for further instruction.
[2019-10-18 12:49] VITALS: BP 153/67
[2019-10-18] MEDS ORDERED: MAGNESIUM SULFATE 1GM/100ML 100 ML IV ONE (14:45)
[2019-10-18] MEDS ORDERED: SODIUM CHL 0.9% 1000 ML BAG IV ONE (15:04)
--- NOTE | 2019-10-18 16:25 | NUR ---
Assessment Patient is a 64-year-old female who is alert and oriented. Prior to admission patient lived home with family and functioned independently. Patient informed me she has a walker with seat and home oxygen for home use. Per patient she will return home to her prior living arrangements post discharge and family will transport her home. Advised patient there is a social service consult for home health safety evaluation, physical therapy, medication management and vitals. Informed patient clinical information will be faxed to contracted agencies. Informed patient she has the right to participate in all discharge planning. Patient verbalized understanding and agreed to discharge plan. Faxed clinical information to [facility] and [facility] . Per Dara with [facility] patient has been accepted and service to start within 24-48hrs upon d/c day. Addendum: 10/18/19 at 1626 by FAY SALGADO Amended: Links added.
[2019-10-18 17:21] VITALS: BP 125/58
[2019-10-18 22:00] VITALS: BP 119/59
[2019-10-18] MEDS: FAMOTIDINE 20 MG TAB PO SCH (22:00)
[2019-10-19 05:00] VITALS: BP 130/73
[2019-10-19] MEDS: SODIUM CHLORIDE 0.9% 1,000 ML IV SCH (05:16)
[2019-10-19] MEDS ORDERED: SODIUM CHL 0.9% 1000 ML BAG IV ONE (05:16)
[2019-10-19 06:19] LABS: Calcium 8.8 mg/dL (8.5-10.1); Magnesium 1.6 mg/dL (1.6-2.6)
[2019-10-19] MEDS: LEVOTHYROXINE SODIUM 50 MCG TAB PO SCH (07:00)
[2019-10-19 08:46] VITALS: BP 158/88
[2019-10-19] MEDS: cefTRIAXone 1GM/50ML D5W 50 ML IV SCH (08:58)
[2019-10-19] MEDS: ASPirin 81 mg TAB PO SCH (08:58)
[2019-10-19] MEDS: FAMOTIDINE 20 MG TAB PO SCH (08:58)
[2019-10-19] MEDS: ANORO IN SCH (10:00)
[2019-10-19] MEDS ORDERED: ENOXAPARIN SOD 40 MG/0.4 ML SYRINGE SC SCH (10:00)
--- NOTE | 2019-10-19 10:32 | NUR ---
PATIENT REFUSED PT. JOSEPH EVANS WAS NOTIFIED. Addendum: 10/19/19 at 1339 by CLARK PUENTE PTT Amended: Links added.
--- NOTE | 2019-10-19 10:54 | NUR ---
authorization for [facility] agency is [id number]
[2019-10-19 12:45] VITALS: BP 153/78
[2019-10-19] MEDS ORDERED: MAGNESIUM SULFATE 1GM/100ML 100 ML IV ONE (14:30)
[2019-10-19] MEDS ORDERED: CARVEDILOL 3.125 MG TAB PO ONE (14:45)
[2019-10-19 16:25] VITALS: BP 136/78
[2019-10-19 17:13] VITALS: BP 151/64
--- NOTE | 2019-10-19 18:10 | NUR ---
Discharge instructions given as ordered. Encourage to follow up with PMD as instructed. All questions and concerns addressed. Patient verbalized understanding. Medication reconciliation form completed and copy given to patient. IV removed with catheter intact, pressure dressing applied. Telemetry unit returned to ICU. Patient taken to vehicle via wheelchair with all personal belongings, accompanied by staff. No distress noted at time of departure.
== END 2019-10-19 18:00 | disposition home health service (06) | DRG 249 ==
LOC: ER 12:03 → EDBD 12:03 → TELE 12:04 → TELE-WESTW 23:33
PROVIDERS: ADMIT Internal Medicine; ATTEND Internal Medicine
DX: R19.7 Diarrhea, unspecified (principal); N17.0 Acute kidney failure with tubular necrosis; J96.10 Chronic respiratory failure, unspecified whether with hypoxia or hypercapnia; E11.22 Type 2 diabetes mellitus with diabetic chronic kidney disease; I95.9 Hypotension, unspecified; S00.03XA Contusion of scalp, initial encounter; D63.8 Anemia in other chronic diseases classified elsewhere; E86.0 Dehydration; D50.8 Other iron deficiency anemias; E66.9 Obesity, unspecified; K21.9 Gastro-esophageal reflux disease without esophagitis; I25.2 Old myocardial infarction; I25.10 Atherosclerotic heart disease of native coronary artery without angina pectoris; Z95.1 Presence of aortocoronary bypass graft; E78.5 Hyperlipidemia, unspecified; E89.0 Postprocedural hypothyroidism; J44.9 Chronic obstructive pulmonary disease, unspecified; Z88.8 Allergy status to other drugs, medicaments and biological substances; W18.39XA Other fall on same level, initial encounter; Y93.89 Activity, other specified; Y92.89 Other specified places as the place of occurrence of the external cause; Y99.8 Other external cause status; Z82.49 Family history of ischemic heart disease and other diseases of the circulatory system; Z83.3 Family history of diabetes mellitus; Z90.710 Acquired absence of both cervix and uterus; Z68.38 Body mass index [BMI] 38.0-38.9, adult; I12.9 Hypertensive chronic kidney disease with stage 1 through stage 4 chronic kidney disease, or unspecified chronic kidney disease; N18.9 Chronic kidney disease, unspecified
CPT/HCPCS: 36415; 70450; 71045; 72125; 74176; 76775; 80048; 80053; 80061; 81001; 82270; 82550; 82962; 83036; 83540; 83550; 83735; 83880; 84443; 84484; 85014; 85018; 85025; 85610; 85730; 87081; 87086; 93005; 93306; 93886; 96361; 96365; 97163; G0378; J0696

== ENCOUNTER → 2020-03-29 | Outpatient (CLI) | payer MEDICARE, MEDICAID ==
[~2020-03-29] MED LIST changes: -FURO20TA3 PO; +LEVO137T3 PO; -LEVO150T10 PO; -LISI-648 PO; -METF-370 PO; -SPIR25TA8 PO
[2020-03-29 09:33] LABS: Basophils # (auto) 0 10 ^3/uL (0-0.2); Basophils % (auto) 0.6 % (0.0-2.0); Eosinophils # (auto) 0.3 10 ^3/uL (0-0.8); Eosinophils % (auto) 3.2 % (0.0-7.0); Hematocrit 39.9 % (36.0-46.0); Hemoglobin 13.5 g/dL (12.2-16.2); Lymphocytes # (auto) 1.4 10 ^3/uL (0.4-5.4); Lymphocytes % (auto) 17.6 % (10.0-50.0); Mean Corpuscular Hemoglobin 31.2 pg (28.0-32.0); Mean Corpuscular Hgb Conc. 33.8 g/dL (32.0-36.0); Mean Corpuscular Volume 92.4 fL (80.0-100.0); Monocytes # (auto) 0.5 10 ^3/uL (0-1.3); Monocytes % (auto) 6.6 % (0.0-12.0); Neutrophils # (auto) 5.7 10 ^3/uL (1.6-8.6); Nucleated Red Blood Cells % 0.1 %; Platelet Count (auto) 264 10^3/uL (140-450); Red Blood Cells 4.32 10^6/uL (4.0-5.20); Red Cell Distribution Width 14.8 % (11.8-14.3); White Blood Cell 7.9 10^3/uL (4.4-10.8)
[2020-03-29 12:25] LABS: Albumin 3.5 g/dL (3.4-5.0); BUN/Creatinine Ratio 12.1; Calcium 9.1 mg/dL (8.5-10.1); Potassium 3.5 mmol/L (3.5-5.1)
[2020-03-29 12:39] LABS: Free T4 (Free Thyroxine) 1.06 ng/dL (0.89-1.76)
[2020-03-29 12:58] LABS: Bilirubin, Total 0.3 mg/dL (0.2-1.0); Total Protein 8.2 g/dL (6.4-8.2)
== END | disposition home or self-care (01) ==
LOC: LAB 09:04
PROVIDERS: ATTEND Internal Medicine
DX: I11.0 Hypertensive heart disease with heart failure (principal); I50.32 Chronic diastolic (congestive) heart failure; E03.9 Hypothyroidism, unspecified; E78.00 Pure hypercholesterolemia, unspecified; Z79.899 Other long term (current) drug therapy
CPT/HCPCS: 36415; 80053; 80061; 82306; 82607; 84439; 84443; 85025

== ENCOUNTER → 2020-07-18 | Outpatient (CLI) | payer MEDICARE, MEDICAID ==
[2020-07-18 10:14] LABS: Basophils # (auto) 0 10 ^3/uL (0-0.2); Basophils % (auto) 0.7 % (0.0-2.0); Eosinophils # (auto) 0.4 10 ^3/uL (0-0.8); Eosinophils % (auto) 5.5 % (0.0-7.0); Hematocrit 35.8 % (36.0-46.0); Hemoglobin 12.4 g/dL (12.2-16.2); Lymphocytes # (auto) 1.1 10 ^3/uL (0.4-5.4); Lymphocytes % (auto) 17.8 % (10.0-50.0); Mean Corpuscular Hemoglobin 32.9 pg (28.0-32.0); Mean Corpuscular Hgb Conc. 34.8 g/dL (32.0-36.0); Mean Corpuscular Volume 94.8 fL (80.0-100.0); Monocytes # (auto) 0.3 10 ^3/uL (0-1.3); Monocytes % (auto) 5.4 % (0.0-12.0); Neutrophils # (auto) 4.5 10 ^3/uL (1.6-8.6); Neutrophils % (auto) 70.6 % (37.0-80.0); Nucleated Red Blood Cells % 0.1 %; Platelet Count (auto) 214 10^3/uL (140-450); Red Blood Cells 3.77 10^6/uL (4.0-5.20); Red Cell Distribution Width 14.8 % (11.8-14.3); White Blood Cell 6.3 10^3/uL (4.4-10.8)
[2020-07-18 10:20] LABS: Urine Bacteria FEW /hpf (None Seen); Urine Blood 2+ /uL (Negative); Urine Mucus FEW (None Seen); Urine Specific Gravity 1.016 (1.001-1.035); Urine WBC 201 /hpf (0 - 5)
[2020-07-18 10:49] LABS: Albumin 3.5 g/dL (3.4-5.0); Calcium 8.9 mg/dL (8.5-10.1); Potassium 3.8 mmol/L (3.5-5.1)
[2020-07-18 10:53] LABS: BUN/Creatinine Ratio 16.2; Bilirubin, Total 0.3 mg/dL (0.2-1.0); Total Protein 7.4 g/dL (6.4-8.2)
== END | disposition home or self-care (01) ==
LOC: LAB 09:52
PROVIDERS: ATTEND Internal Medicine
DX: I50.32 Chronic diastolic (congestive) heart failure (principal); J44.9 Chronic obstructive pulmonary disease, unspecified; E11.22 Type 2 diabetes mellitus with diabetic chronic kidney disease; N18.30 Chronic kidney disease, stage 3 unspecified
CPT/HCPCS: 36415; 80053; 81001; 82043; 83036; 85025

== ENCOUNTER → 2020-11-28 | Outpatient (CLI) | payer MEDICAID ==
[2020-11-28 14:25] LABS: BUN/Creatinine Ratio 12.5; Calcium 8.9 mg/dL (8.5-10.1); Potassium 3.2 mmol/L (3.5-5.1)
[2020-11-28 14:47] LABS: Free T4 (Free Thyroxine) 1.5 ng/dL (0.89-1.76)
== END | disposition home or self-care (01) ==
LOC: LAB 13:30
PROVIDERS: ATTEND Internal Medicine
DX: E11.22 Type 2 diabetes mellitus with diabetic chronic kidney disease (principal); N18.30 Chronic kidney disease, stage 3 unspecified; E03.9 Hypothyroidism, unspecified
CPT/HCPCS: 36415; 80048; 82607; 84439

== ENCOUNTER → 2020-12-06 | Outpatient (CLI) | payer MEDICAID ==
[2020-12-06 10:41] LABS: Urine Bacteria FEW /hpf (None Seen); Urine Blood Negative /uL (Negative); Urine Hyaline Cast FEW /lpf (0 - 2); Urine Specific Gravity 1.014 (1.001-1.035); Urine WBC 12 /hpf (0 - 5)
[2020-12-06 11:04] LABS: BUN/Creatinine Ratio 15.6; Calcium 8.4 mg/dL (8.5-10.1)
[2020-12-06 11:44] LABS: Protein, Urine 15.4 mg/dL (0.0-11.9)
[2020-12-06 11:54] LABS: Micro Albumin 5.86 mg/L (0-30.0)
== END | disposition home or self-care (01) ==
LOC: LAB 10:09
PROVIDERS: ATTEND Internal Medicine
DX: E78.3 Hyperchylomicronemia (principal)
CPT/HCPCS: 36415; 80048; 81001; 82043; 82570; 84156; 84439; 84443

== ENCOUNTER → 2021-05-02 | Outpatient (CLI) | payer MEDICAID ==
[2021-05-02 17:12] LABS: Albumin 3.5 g/dL (3.4-5.0); Calcium 8.8 mg/dL (8.5-10.1)
[2021-05-02 17:15] LABS: BUN/Creatinine Ratio 11.9; Bilirubin, Total 0.4 mg/dL (0.2-1.0); Total Protein 7.6 g/dL (6.4-8.2)
== END | disposition home or self-care (01) ==
LOC: LAB 15:30
PROVIDERS: ATTEND Internal Medicine Nephrology
DX: N18.32 Chronic kidney disease, stage 3b (principal)
CPT/HCPCS: 36415; 80053

== ENCOUNTER → 2021-08-16 | Outpatient (CLI) | payer OTHER, MEDICAID, MEDICARE ==
[2021-08-16 15:23] LABS: Urine Bacteria NONE SEEN /hpf (None Seen); Urine Blood Negative /uL (Negative); Urine Specific Gravity 1.021 (1.001-1.035); Urine WBC 71 /hpf (0 - 5)
[2021-08-16 16:30] LABS: BUN/Creatinine Ratio 9.7; Calcium 8.9 mg/dL (8.5-10.1); Potassium 4.4 mmol/L (3.5-5.1)
[2021-08-16 16:40] LABS: Free T4 (Free Thyroxine) 1.07 ng/dL (0.89-1.76)
[2021-08-17 13:12] LABS: Micro Albumin 10.2 mg/L (0-30.0)
== END | disposition home or self-care (01) ==
LOC: LAB 14:43
PROVIDERS: ATTEND Internal Medicine Nephrology
DX: N18.32 Chronic kidney disease, stage 3b (principal); E87.6 Hypokalemia; E11.22 Type 2 diabetes mellitus with diabetic chronic kidney disease
CPT/HCPCS: 36415; 80048; 81001; 82043; 82570; 82607; 83036; 84439; 84443

== ENCOUNTER 2025-01-26 17:55 | Emergency (ER) | payer OTHER, MEDICAID ==
[~2025-01-26] VITALS: Ht 162.6 cm; Wt 100.0 kg
[~2025-01-26 17:55] MED LIST changes: +GABA-1250 PO; -GABA300C10 PO; -GUAI600T23 PO; +GUAI600T78 PO
[2025-01-26 18:50] LABS: Hematocrit 37.9 % (36.0-46.0); Hemoglobin 13.2 g/dL (12.2-16.2); Mean Corpuscular Hemoglobin 31.8 pg (28.0-32.0); Mean Corpuscular Volume 91.0 fL (80.0-100.0); Nucleated Red Blood Cells % 0.0 %
--- NOTE | 2025-01-26 18:59 | ED.PDOC ---
HPI Comments This patient is a severely morbidly obese 70 year old female BIBA presenting to the ED with chief complaint of chest pain. Patient reports that she has been experiencing left sided crushing chest pain since this morning, worsening over time. Patient relays that she has history of a triple bypass and is currently on O2 due to COPD. Patient denies any SOB, headache, dizziness, N/V, abdominal pain, or fever. Vital signs were stable on arrival. Chief Complaint: Chest Pain Time Seen by MD: 18:57 Primary Care Provider: ADELIA Reviewed Notes: Nurses Notes, Crime Scene Investigator Notes, Medications, Allergies Allergies: Coded Allergies: Erythromycin (Verified Allergy, Unknown, 12/01/15) Home Meds Active Scripts Mupirocin (Pseudomonas Fluores (BACTROBAN 2% OINTMENT) 1 Applic Ap, 1 APPLIC EACHNOSTRI BID for 3 Days Prov:EMORY ECHEVARRIA MD 05/09/17 Guaifenesin (Mucinex) 600 Mg Tab, 1 TAB PO BID, #20 TAB Prov:EMORY ECHEVARRIA MD 05/09/17 Reported Medications Levothyroxine Sodium (Levothyroxine Sodium) 137 Mcg Tab, 1 TAB PO DAILY, #30 TAB 5 Refills 10/17/19 [Anoro Inhaler] No Conflict Check, 62.5 MCG INH DAILY 12/17/15 Acetaminophen W/ Codeine #3 (Acetaminophen/Codeine #3) 1 Tab Tab, 1 TAB PO Q8HP PRN for SEVERE PAIN, TAB NEEDED FOR PAIN 12/02/15 Gabapentin (Gabapentin) 300 Mg Cap, 2 CAP PO BID, #90 CAP 5 Refills 12/02/15 Carvedilol (Carvedilol) 3.125 Mg Tab, 1 TAB PO BID, #60 TAB 3 Refills 12/02/15 Aspirin (Asa) 81 Mg Ch, 81 MG PO DAILY 12/02/15 Information Source: Patient, Emergency Med Personnel Mode of Arrival: EMS Severity: Moderate Timing: Hours Duration: Since onset Prehospital treatment: None Location: Chest (L) Radiation: No Radiation Quality: Crushing Onset: At Rest Cardiac Risk Factors: Hyperlipidemia, HTN, Diabetes History of: Similar pain in past Past Medical History PAST MEDICAL HISTORY: Anemia, CAD, CKF, COPD, DM, GERD, High Lipids, HTN, [place], Thyroid Surgical History: BTL, CABG, Cholecystectomy, Hysterectomy, Thyroidectomy, Tubal Ligation APPLIANCE TECHNICIAN History: Denies all APPLIANCE TECHNICIAN Hx Family History Family History: Family hx of DM, Family hx of heart gloria, Family hx of HTN Social History Smoker: Non-Smoker, Quit Greater Than 1 Year Alcohol: Occasionally Drugs: Denies Drug Use Lives In: Home Constitutional: denies: chills, diaphoresis, fatigue, fever, malaise, sweats, weakness, others EENTM: denies: blurred vision, double vision, ear bleeding, ear discharge, ear drainage, ear pain, ear ringing, eye pain, eye redness, hearing loss, mouth pain, mouth swelling, nasal discharge, nose bleeding, nose congestion, nose pain, photophobia, tearing, throat pain, throat swelling, voice changes, others Respiratory: denies: cough, hemoptysis, orthopnea, SOB at rest, shortness of breath, SOB with excertion, stridor, wheezing, others Cardiovascular: reports: chest pain; denies: dizzy spells, diaphoresis, Dyspnea on exertion, edema, irregular heart beat, left arm pain, lightheadedness, palpitations, PND, syncope, others Gastrointestinal: denies: abdomen distended, abdominal pain, blood streaked bowels, constipated, diarrhea, dysphagia, difficulty swallowing, hematemesis, melena, nausea, poor appetite, poor fluid intake, rectal bleeding, rectal pain, vomiting, others Genitourinary: denies: abnormal vagina bleeding, burning, dyspareunia, dysuria, flank pain, frequency, hematuria, incontinence, pain, , vagina discharge, urgency, others Neurological: denies: dizziness, fainting, headache, left sided numbness, left sided weakness, numbness, paresthesia, pre-existing deficit, right sided numbness, right sided weakness, seizure, speech problems, tingling, tremors, weakness, others Musculoskeletal: denies: back pain, gout, joint pain, joint swelling, muscle pain, muscle stiffness, neck pain, others Integumetry: denies: bruises, change in color, change in hair/nails, dryness, laceration, lesions, lumps, rash, wounds, others Allergic/Immunocompromised: denies: Difficulty Healing, Frequent Infections, Hives, Itching, others Hematologic/Lymphatic: denies: anemia, blood clots, easy bleeding, easy bruising, swollen glands, others Endocrine: denies: excessive hunger, excessive sweating, excessive thirst, excessive urination, flushing, intolerance to cold, intolerance to heat, unexplained weight gain, unexplained weight loss, others Psychiatric: denies: anxiety, bipolar disorder, depression, hopeless, panic disorder, schizophrenia, sleepless, suicidal, others All Other Systems: Reviewed and Negative Physical Exam General Appearance: Moderate Distress (Due to chest pain concerns.), Obese HEENT: Normal ENT Inspection, Pharynx Normal, TMs Normal Neck: Full Range of Motion, Non-Tender, Normal, Normal Inspection Respiratory: Chest Non-Tender, Lungs Clear, No Accessory Muscle Use, No Respiratory Distress, Normal Breath Sounds Cardiovascular: No Edema, No JVD, No Murmur, No Gallop, Normal Peripheral Pulses, Regular Rate/Rhythm, Other (Unremarkable cardiac evaluation.) Breast Exam: Deferred Gastrointestinal: No Organomegaly, Non Tender, No Pulsatile Mass, Normal Bowel Sounds, Soft Genitalia: Deferred Pelvic: Deferred Rectal: Deferred Extremities: Normal capillary refill, Normal range of motion Musculoskeletal : Apperance: Normal Neurologic: Alert Cerebellar Function: NOT DONE Reflexes: NOT DONE Skin: Dry Lymphatic: No Adenopathy Was a procedure done? Was a procedure done?: No CP Differential Dx Differential Diagnosis: A-fib, A-Flutter, Anxiety / Panic Attack, Atrial Dysrhythmia, AV Block 1st Degree, [place] Differential Diagnosis: CHF Differential Diagnosis: Angina, Costochondritis X-Ray, Labs, Meds, VS Vital Signs Date Time Temp Pulse Resp B/P (MAP) Pulse Ox O2 Delivery O2 Flow Rate FiO2 01/26/25 21:20 110/61 01/26/25 21:14 98.9 89 18 103/54 (70) 96 98.9 01/26/25 21:14 89 18 96 Nasal Cannula* 2 28 01/26/25 19:54 82 01/26/25 17:58 97.8 88 16 118/76 95 97.8 01/26/25 17:55 85 Lab Test 01/26/25 21:21 01/26/25 19:26 01/26/25 18:24 Range/Units Troponin I High Sensitivity 5 5 5 </=34 ng/L White Blood Count 8.2 4.4-10.8 10^3/uL Red Blood Count 4.16 4.0-5.20 10^6/uL Hemoglobin 13.2 12.2-16.2 g/dL Hematocrit 37.9 36.0-46.0 % Mean Corpuscular Volume 91.0 80.0-100.0 fL Mean Corpuscular Hemoglobin 31.8 28.0-32.0 pg Mean Corpuscular Hemoglobin Concent 34.9 32.0-36.0 g/dL Red Cell Distribution Width 13.8 11.8-14.3 % Platelet Count 250 140-450 10^3/uL Mean Platelet Volume 8.3 6.9-10.8 fL Neutrophils (%) (Auto) 72.7 37.0-80.0 % Lymphocytes (%) (Auto) 18.3 10.0-50.0 % Monocytes (%) (Auto) 5.9 0.0-12.0 % Eosinophils (%) (Auto) 2.6 0.0-7.0 % Basophils (%) (Auto) 0.5 0.0-2.0 % Neutrophils # (Auto) 6.0 1.6-8.6 10 ^3/uL Lymphocytes # (Auto) 1.5 0.4-5.4 10 ^3/uL Monocytes # (Auto) 0.5 0-1.3 10 ^3/uL Eosinophils # (Auto) 0.2 0-0.8 10 ^3/uL Basophils # (Auto) 0 0-0.2 10 ^3/uL Nucleated Red Blood Cells 0.0 % Sodium Level 142 136-145 mmol/L Potassium Level 3.4 L 3.5-5.1 mmol/L Chloride Level 104 98-107 mmol/L Carbon Dioxide Level 26 20-31 mmol/L Anion Gap 12 5-15 Blood Urea Nitrogen 17 9-23 mg/dL Creatinine 1.05 H 0.550-1.02 mg/dL Glomerular Filtration Rate Calc 57 >90 mL/min BUN/Creatinine Ratio 16.2 10.0-20.0 Serum Glucose 107 H 74-106 mg/dL Lactic Acid Level 1.4 0.4-2.0 mmol/L Calcium Level 9.0 8.7-10.4 mg/dL B-Type Natriuretic Peptide 56.40 0-100 pg/mL Lipase 41 12-53 U/L Current Medications Medications (Trade) Dose Ordered Sig/Ravinder Route Start Time Stop Time Status Last Admin Nitroglycerin (Ntrostat Sublingual) 0.4 mg ONCE ONCE SL 01/26/25 18:15 01/26/25 18:16 DC 01/26/25 21:20 X-Ray, Labs, Meds, VS Comment All studies performed the ED were evaluated by me personally. Serum studies were unremarkable for any systemic concerns including unremarkable cardiac markers. EKG revealed a sinus rhythm with a rate of 82. Right bundle-branch block was noted. [place] interval of 189 and QT interval 407. Relatively unremarkable acute EKG. Chest x-ray was unremarkable for any consolidation or intrapulmonary concerns. Unknown as with the definitive cause of the patient's chest pain concerns other than her body habitus. Advised patient to follow up with primary care provider for continued evaluation and cardiac referral. Time of 1ST Reevaluation: 22:29 Reevaluation 1ST: Improved Consultation: PCP, Cardiology Patient Education/Counseling: Diagnosis, Treatment Family Education/Counseling: Diagnosis, Treatment, No Family Present SEPSIS Sepsis Screen Date sepsis recognized/suspect: Jan 26, 2025 Time Sepsis recognized/suspect: 1757 Recent Procedure: No On Antibiotic Therapy: No Respiratory Rate >20: No Heart Rate >90: No Temp<36 C (96.8 F) or >38.3 C: No SBP <90 or MAP <65 mmHG: No New Acute Mental Status Change: No Is the patient on CPAP, BIPAP,: No Physician Orders Electrocardigram (01/26/25 18:02) Electrocardigram (01/26/25 19:02) Electrocardigram (01/26/25 21:02) Urinalysis (01/26/25 18:11) Chest Portable (01/26/25 18:11) Vital Signs Date Time Temp Pulse Resp B/P (MAP) Pulse Ox O2 Delivery O2 Flow Rate FiO2 01/26/25 21:20 110/61 01/26/25 21:14 98.9 89 18 103/54 (70) 96 98.9 01/26/25 21:14 89 18 96 Nasal Cannula* 2 28 01/26/25 19:54 82 01/26/25 17:58 97.8 88 16 118/76 95 97.8 01/26/25 17:55 85 Laboratory Tests Test 01/26/25 18:24 Lactic Acid Level 1.4 mmol/L (0.4-2.0) White Blood Count 8.2 10^3/uL (4.4-10.8) Medications Medications Dose Ordered Sig/Ravinder Route Start Time Stop Time Status Last Admin Dose Admin Nitroglycerin 0.4 mg ONCE ONCE SL 01/26/25 18:15 01/26/25 18:16 DC 01/26/25 21:20 Departure 1 Departure Time of Disposition: 22:30 Impression: Primary Impression: Chest pain Disposition: HOME / SELF CARE / HOMELESS Condition: Stable Additional Instructions: Advised patient utilize medication as needed for symptomatic relief. Patient needs to follow up with the primary care provider for continued evaluation and probable Cardiology referral. e-Prescriptions Nitroglycerin (Nitrostat) 0.4 Mg Sub 0.4 MG SL Q8HP PRN, #10 TAB Prov: ARANZA BURCH PAC 01/26/25 Discharged With: Self, Friend Critical Care Note Critical Care Time?: No Stability Stability form required: No Heart Score Heart Score: Heart Score Response (Comments) Value History Moderate Suspicious 1 EKG Normal 0 Age >65 2 Risk Factors >3 or Hx ASHD 2 Troponin Normal limit 0 Total 5 I personally scribed for ARANZA BURCH PAC ([email or web address]) on 01/26/25 at 18:59. Electronically submitted by Nicolas Kellogg ([email or web address]). ARANZA BURCH PAC Jan 26, 2025 18:59
[2025-01-26 19:05] LABS: Chloride 104 mmol/L (98-107); Sodium 142 mmol/L (136-145)
[2025-01-26 19:06] LABS: Anion Gap 12 (5-15); Calcium 9.0 mg/dL (8.7-10.4); Carbon Dioxide 26 mmol/L (20-31)
--- NOTE | 2025-01-26 19:10 | DVH ---
CHEST RADIOGRAPH Indication: Chest pain Technique: Single frontal view of the chest was obtained Comparison: None FINDINGS: Lines and Tubes: Sternal wire sutures in place. Lungs: No focal consolidation. Pleura: No effusion. No pneumothorax. Cardiomediastinal contours: Unremarkable Bones: No acute osseous abnormality. IMPRESSION: 1. No acute cardiopulmonary disease.
[2025-01-26 19:11] LABS: BUN/Creatinine Ratio 16.2 (10.0-20.0); Blood Urea Nitrogen 17 mg/dL (9-23); Glucose 107 mg/dL (74-106); Potassium 3.4 mmol/L (3.5-5.1)
[2025-01-26 19:24] LABS: Lipase 41 U/L (12-53)
[2025-01-26 21:14] VITALS: PULSE 89; RESP 18; O2SAT 96
[2025-01-26] MEDS: NITROGLYCERIN 0.4 MG SL TAB SL ONE (21:20)
[2025-01-26] MEDS ORDERED: NITR0.4S29 SL (22:30)
[2025-01-26 23:30] VITALS: BP 114/71; PULSE 90; RESP 18; TEMP 97.5; O2SAT 96
--- NOTE | 2025-01-27 02:13 | ECG ---
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
--- NOTE | 2025-01-30 10:00 | ECG ---
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
== END 2025-01-26 23:32 | disposition home or self-care (01) ==
LOC: ER 17:55 → EDBD 17:55 → ER 23:32
DX: R07.89 Other chest pain (principal); F10.90 Alcohol use, unspecified, uncomplicated; I12.0 Hypertensive chronic kidney disease with stage 5 chronic kidney disease or end stage renal disease; E11.22 Type 2 diabetes mellitus with diabetic chronic kidney disease; N18.6 End stage renal disease; E78.5 Hyperlipidemia, unspecified; I25.2 Old myocardial infarction; I25.10 Atherosclerotic heart disease of native coronary artery without angina pectoris; J44.9 Chronic obstructive pulmonary disease, unspecified; E66.01 Morbid (severe) obesity due to excess calories; Z79.899 Other long term (current) drug therapy; Z95.1 Presence of aortocoronary bypass graft; Z90.710 Acquired absence of both cervix and uterus; Z90.49 Acquired absence of other specified parts of digestive tract; Z88.1 Allergy status to other antibiotic agents; Z79.890 Hormone replacement therapy; Z79.82 Long term (current) use of aspirin; Z68.37 Body mass index [BMI] 37.0-37.9, adult; Y90.9 Presence of alcohol in blood, level not specified
CPT/HCPCS: 36415; 71045; 80048; 83605; 83690; 83880; 84484; 85025; 93005